=== PATIENT | female | born 1985 | race African-American/Black ===

== ENCOUNTER 2019-07-17 02:12 | Emergency (ER) | payer BC ==
[~2019-07-17] VITALS: Ht 167.6 cm; Wt 86.2 kg
[2019-07-17] MEDS ORDERED: ASPIRIN 81 MG TAB.CHEW PO ONE (02:15)
[2019-07-17] MEDS ORDERED: IV NORMAL SALINE 1,000ML 1,000 ML IV SCH (02:15)
--- NOTE | 2019-07-17 02:31 | PHYS DOC ---
Past History Past Medical History: Asthma, Other Additional Past Medical Histor: GRAVES, GASTROPORESIS, PRE-DIABETIC Past Surgical History: Tonsillectomy, Other Additional Past Surgical Histo: LAPROSCOPIC Alcohol Use: Occasionally Drug Use: None Adult General Chief Complaint Chief Complaint: SHORTNESS OF BREATH HPI HPI 33-year-old female presents with shortness of breath. The patient was feeling short of breath when she went to bed last night. Today she was doing well most the day until bedtime. She then began to feel a chest heaviness and like she could not get a deep breath. She took several puffs of albuterol. This did not seem to help. She decided come the emergency room. The patient is on medications for mild intermittent asthma, bipolar, anxiety, and alcohol abuse. No recent medication changes. She denies falls or trauma. No diaphoresis, fever, or chills. She is very worried. Review of Systems Review of Systems Constitutional: Denies fever or chills [] Eyes: Denies change in visual acuity, redness, or eye pain [] HENT: Denies nasal congestion or sore throat [] Respiratory: shortness of breath [] Cardiovascular: No additional information not addressed in HPI [] GI: Denies abdominal pain, nausea, vomiting, bloody stools or diarrhea [] : Denies dysuria or hematuria [] Musculoskeletal: Denies back pain or joint pain [] Integument: Denies rash or skin lesions [] Neurologic: Denies headache, focal weakness or sensory changes [] Endocrine: Denies polyuria or polydipsia [] All other systems were reviewed and found to be within normal limits, except as documented in this note. Current Medications Current Medications Current Medications Medications (Trade) Dose Ordered Sig/Mariah Start Time Stop Time Status Last Admin Dose Admin Aspirin (Children'S Aspirin) 324 mg 1X ONCE 07/17/19 02:15 07/17/19 02:16 UNV Sodium Chloride 1,000 ml @ 1,000 mls/hr Q1H 07/17/19 02:15 07/17/19 03:14 UNV Allergies Allergies Allergies Coded Allergies Type Severity Reaction Last Updated Verified cefaclor Allergy Unknown 07/17/19 Yes Physical Exam Physical Exam Constitutional: Well developed, well nourished, no acute distress, non-toxic appearance. [] HENT: Normocephalic, atraumatic, bilateral external ears normal, oropharynx moist, no oral exudates, nose normal. [] Eyes: PERRLA, EOMI, conjunctiva normal, no discharge. [] Neck: Normal range of motion, no tenderness, supple, no stridor. [] Cardiovascular: Heart rate 133, regular rhythm, no murmur [] Lungs & Thorax: Bilateral breath sounds clear to auscultation [] Abdomen: Bowel sounds normal, soft, no tenderness, no masses, no pulsatile masses. [] Skin: Warm, dry, no erythema, no rash. [] Back: No tenderness, no CVA tenderness. [] Extremities: No tenderness, no cyanosis, no clubbing, ROM intact, no edema. [] Neurologic: Alert and oriented X 3, normal motor function, normal sensory function, no focal deficits noted. [] Psychologic: Affect nervous, judgement normal, mood anxious. [] Current Patient Data Vital Signs Vital Signs Date Time Temp Pulse Resp B/P (MAP) Pulse Ox O2 Delivery O2 Flow Rate FiO2 07/17/19 02:24 97.6 131 28 99 Room Air EKG EKG Sinus tachycardia, rate 133, normal axis, no ST elevations or depressions.[] Radiology/Procedures Radiology/Procedures [] Impressions: Exam: Chest 2 views INDICATION: Chest pain TECHNIQUE: Frontal and lateral views the chest Comparisons: None FINDINGS: The cardiomediastinal silhouette and pulmonary vessels are within normal limits. The lung and pleural spaces are clear. IMPRESSION: No acute cardiopulmonary process. Electronically signed by: Andre Live MD (07/17/2019 3:03 AM) [facility] DICTATED AND SIGNED BY: ANDRE LIVE MD DATE: 07/17/19 0303 CC: ELSA CHEW DO; LINDA AMADOR MD ~ Exam: CT of chest with contrast INDICATION: Tachycardia TECHNIQUE: Sequential axial images through the chest obtained following the administration of 100 mL of Omni 350 IV contrast. Sagittal and coronal reformatted images were reconstructed from the axial data and reviewed. Comparisons: Chest x-ray same day FINDINGS: Visualized portions of the thyroid are unremarkable. No enlarged mediastinal lymph nodes are identified. Non enlarged right hilar lymph node is noted. Heart size is normal. No pericardial effusion. Thoracic aorta has normal course and caliber. Pulmonary artery is not enlarged. No pulmonary embolus identified within the main, lobar or segmental pulmonary arteries are identified. Airways are patent. No consolidation or pneumothorax. Patchy areas of groundglass opacity noted within the right middle and lower lobe, favored represent atelectasis. No suspicious lung nodules are identified. No pleural effusion or thickening. Visualized upper abdomen is unremarkable. No suspicious osseous lesions or acute fractures. IMPRESSION: No pulmonary embolus identified within the main, lobar or segmental pulmonary arteries. Exposure: One or more of the following in the visualized dose reduction techniques were utilized for this examination: 1. Automated exposure control 2. Adjustment of the MA and/or KV according to patient size 3. Use of iterative of reconstructive technique Electronically signed by: Andre Live MD (07/17/2019 5:07 AM) [facility] DICTATED AND SIGNED BY: ANDRE LIVE MD DATE: 07/17/19 0507 CC: ELSA HCEW DO; LINDA AMADOR MD ~ Course & Med Decision Making Course & Med Decision Making Pertinent Labs and Imaging studies reviewed. (See chart for details) The patient's labs are unremarkable. Her chest x-rays negative for acute findings. The patient's urine drug screen is only positive for alcohol. Given her persistent tachycardia and was in the 120s, I ordered a CTA of the chest. The CT is negative for pulmonary embolus. Her heart rate has improved to the low 110s. I believe her albuterol wearing off. She is enough albuterol today to lower her potassium. I gave her 40 mEq of supplemental. This could still be anxiety driven. The patient was given 2 mg of Ativan IV. He denies any significant abnormalities to warrant admission. The patient is stable for discharge at this time. [] Dragon Disclaimer Dragon Disclaimer This electronic medical record was generated, in whole or in part, using a voice recognition dictation system. Departure Departure: Impression: Primary Impression: Anxiety reaction Additional Impression: SOB (shortness of breath) Disposition: 01 HOME, SELF-CARE Condition: STABLE Referrals: LINDA AMADOR MD (PCP) Patient Instructions: Anxiety and Panic Attacks, [id number], Chest Pain (Nonspecific), [id number] Problem Qualifiers ELSA CHEW DO Jul 17, 2019 02:30
[2019-07-17 02:53] LABS: BASO # 0.1 x10^3/uL (0.0-0.2); BASO % 1 % (0-3); EOS % 0 % (0-3); HEMATOCRIT 46.5 % (36.0-47.0); HEMOGLOBIN 15.3 g/dL (12.0-15.5); LYMPH # 3.4 x10^3/uL (1.0-4.8); LYMPH % 29 % (24-48); MEAN CORPUSCULAR HEMOGLOBIN 32 pg (25-35); MEAN CORPUSCULAR HGB CONC 33 g/dL (31-37); MEAN CORPUSCULAR VOLUME 98 fL (79-100); MONO # 0.8 x10^3/uL (0.0-1.1); MONO % 7 % (0-9); NEUT # 7.4 x10^3uL (1.8-7.7); NEUT % 64 % (31-73); PLATELET COUNT 297 x10^3/uL (140-400); RED BLOOD COUNT 4.76 x10^6/uL (3.50-5.40); WHITE BLOOD COUNT 11.7 x10^3/uL (4.0-11.0)
--- NOTE | 2019-07-17 03:06 | RAD ---
Exam: Chest 2 views INDICATION: Chest pain TECHNIQUE: Frontal and lateral views the chest Comparisons: None FINDINGS: The cardiomediastinal silhouette and pulmonary vessels are within normal limits. The lung and pleural spaces are clear. IMPRESSION: No acute cardiopulmonary process. Electronically signed by: Andre Morelos MD (07/17/2019 3:03 AM) [facility]
[2019-07-17 03:39] LABS: ALBUMIN 3.7 g/dL (3.4-5.0); ALBUMIN/GLOBULIN RATIO 0.9 (1.0-1.7); CALCIUM 8.9 mg/dL (8.5-10.1); CREATININE 0.7 mg/dL (0.6-1.0); GFR 117.3; TOTAL BILIRUBIN 0.3 mg/dL (0.2-1.0)
[2019-07-17 03:42] LABS: POTASSIUM 2.8 mmol/L (3.5-5.1)
[2019-07-17] MEDS ORDERED: POTASSIUM CHLORIDE 20 MEQ TABLET.ER. PO ONE (03:45)
[2019-07-17] MEDS ORDERED: IOHEXOL 350 MG/ML 100 ML VIAL. IV ONE (04:00)
[2019-07-17 04:14] LABS: BARBITURATES NEG (NEG); BENZODIAZEPINES NEG (NEG); CANNABINOIDS NEG (NEG); COCAINE NEG (NEG); METHADONE NEG (NEG); OPIATES NEG (NEG); PHENCYCLIDINE NEG (NEG)
[2019-07-17 04:15] LABS: BACTERIA,URINE 0 /HPF (0-FEW); BILIRUBIN,URINE NEG (NEG); CLARITY,URINE CLEAR; COLOR,URINE YELLOW; GLUCOSE,URINE NEG (NEG); NITRITE,URINE NEG (NEG); RBC,URINE OCC /HPF (0-2); SQUAMOUS EPITHELIAL CELL,UR OCC /LPF; UROBILINOGEN,URINE 0.2 mg/dL (0.2 mg/dL); WBC,URINE OCC /HPF (0-4)
[2019-07-17] MEDS ORDERED: CONTRAST GIVEN MC PRN (04:15)
[2019-07-17 04:16] LABS: AMPHETAMINE/METHAMPHETAMINE NEG (NEG)
[2019-07-17 04:48] VITALS: BP 124/83
--- NOTE | 2019-07-17 05:10 | RAD ---
Exam: CT of chest with contrast INDICATION: Tachycardia TECHNIQUE: Sequential axial images through the chest obtained following the administration of 100 mL of Omni 350 IV contrast. Sagittal and coronal reformatted images were reconstructed from the axial data and reviewed. Comparisons: Chest x-ray same day FINDINGS: Visualized portions of the thyroid are unremarkable. No enlarged mediastinal lymph nodes are identified. Non enlarged right hilar lymph node is noted. Heart size is normal. No pericardial effusion. Thoracic aorta has normal course and caliber. Pulmonary artery is not enlarged. No pulmonary embolus identified within the main, lobar or segmental pulmonary arteries are identified. Airways are patent. No consolidation or pneumothorax. Patchy areas of groundglass opacity noted within the right middle and lower lobe, favored represent atelectasis. No suspicious lung nodules are identified. No pleural effusion or thickening. Visualized upper abdomen is unremarkable. No suspicious osseous lesions or acute fractures. IMPRESSION: No pulmonary embolus identified within the main, lobar or segmental pulmonary arteries. Exposure: One or more of the following in the visualized dose reduction techniques were utilized for this examination: 1. Automated exposure control 2. Adjustment of the MA and/or KV according to patient size 3. Use of iterative of reconstructive technique Electronically signed by: Andre Morelos MD (07/17/2019 5:07 AM) [facility]
== END 2019-07-17 05:25 | disposition home or self-care (01) ==
LOC: ER 02:12
DX: F41.9 Anxiety disorder, unspecified (principal); J45.909 Unspecified asthma, uncomplicated; Z88.1 Allergy status to other antibiotic agents
CPT/HCPCS: 36415; 71046; 71275; 80053; 80307; 81001; 83690; 84484; 85025; 96374; 99285; J2060; Q9967; J7030

== ENCOUNTER → 2021-08-10 | Outpatient (CLI) | payer BC ==
[~2021-08-10] MED LIST: ALBU2.5V8 IH; DULO60CA7 PO; LAMO200T25 PO; RISP2TAB78 PO; SIMV20TA18 PO; TRAZ-120 PO; norethindrone
== END ==
LOC: LAB 08:35
PROVIDERS: ATTEND Internal Medicine Gastroenterology
DX: Z01.812 Encounter for preprocedural laboratory examination (principal); R13.10 Dysphagia, unspecified; K21.9 Gastro-esophageal reflux disease without esophagitis; R11.10 Vomiting, unspecified; Z20.822 Contact with and (suspected) exposure to COVID-19
CPT/HCPCS: U0003

== ENCOUNTER → 2021-08-13 | Day surgery (SDC) | payer BC ==
[~2021-08-13] MED LIST changes: +CITRIC ACID/SODIUM CITRATE 30 ML SOLUTION. ONE; +IPRATRPIUM/ALBUTEROL 0.5/2.5MG 3 ML NEBU. NEB PRN; +IV RINGERS SOLUTION,LACTATED 1,000 ML IV SCH; +LIDOCAINE 2% PF 5 ML VIAL. ONE; +MIDAZOLAM HCL PF 2 MG/2 ML VIAL. IV ONE; +ONDANSETRON PF 4 MG/2 ML VIAL. IV PRN; +PROAIR RESPICL90 MCG IH; +PROPOFOL 10,000 MCG/ML (20ML) VIAL IV ONE
--- NOTE | 2021-08-13 11:45 | NUR ---
Patient sinus tachycardia on tele monitor, no complains of shortness of breath, chest pain, dizziness. Anesthesia aware, requested EKG.
[2021-08-13 11:58] LABS: U PREG PATIENT NEGATIVE (NEG)
[2021-08-13 13:32] VITALS: BP 137/91
--- NOTE | 2021-08-13 14:34 | EKG ---
[address] [address] Test Date: 2021-08-13 Test Time: 11:54:48 Pat Name: ESTEPHANIA TIERNEY Department: Room: Gender: F [employer] Supervisor: ESTELLA : 1985 Requested By: PADMINI SOARES Order Number: [id number] Reading MD: Balwinder Chapa MD Measurements Intervals [place] Rate: 111 P: 31 [place]: 140 QRS: 47 QRSD: 64 T: 19 QT: 316 QTc: 433 Interpretive Statements SINUS TACHYCARDIA Electronically Signed On 08-16-2021 9:30:43 [employer] by Balwinder Chapa MD
--- NOTE | 2021-08-17 17:09 | PATHOLOGY ---
[facility] Accession Number: [id number] . 01 Material submitted: . stomach - ANTRUM BIOPSY . 01 Clinical history: . DYSPHAGIA, EGD . 02 Diagnosis: Gastric biopsies, antrum: - Congestion and focal slight chronic inflammation. (M:emily; 08/17/2021) [facility] 08/17/2021 1358 Local . 02 Comment: Sections of the gastric biopsy reveal gastric antral and antral/body transition mucosa showing congestion and focal slight chronic inflammation. A properly controlled immunoperoxidase stain for Helicobacter is negative for Helicobacter organisms. (JPM:car runner; 08/17/2021) . 02 Electronically signed: . Donnie Singh MD, Pathologist NPI- [id number] . 01 Gross description: . The specimen is received in formalin, labeled "Shabnam, Shannon, antrum". Received are 2 segments of pale dale tissue measuring 0.4 to 0.5 cm in maximum dimensions. The specimen is submitted entirely in cassette A1.([facility]; 08/16/2021) [facility] 08/16/2021 1515 Local . 02 Pathologist provided ICD-10: K29.50 . 02 CPT . 765715, [id number] Specimen Comment: A courtesy copy of this report has been sent to [phone], [phone] Specimen Comment: [id number] Specimen Comment: Report sent to / DR AMADOR Specimen Comment: A duplicate report has been generated due to demographic updates. Performed at: 01 [facility] [address], [place], [place] [id number] MD Jerrod Maldonado MD Phone: [phone] Performed at: 02 [facility] [address] [place], [place] [id number] MD Donnie Singh MD Phone: [phone]
== END | disposition home or self-care (01) ==
LOC: SURG 11:31
PROVIDERS: ATTEND Internal Medicine Gastroenterology
DX: R13.10 Dysphagia, unspecified (principal); R12 Heartburn; K29.50 Unspecified chronic gastritis without bleeding; K44.9 Diaphragmatic hernia without obstruction or gangrene; K21.00 Gastro-esophageal reflux disease with esophagitis, without bleeding; K31.89 Other diseases of stomach and duodenum; Z79.899 Other long term (current) drug therapy; Z72.89 Other problems related to lifestyle; Z98.890 Other specified postprocedural states; Z91.040 Latex allergy status; Z88.8 Allergy status to other drugs, medicaments and biological substances
CPT/HCPCS: 43239; 43450; 81025; 88305; 88342; 93005; J2001; J2704; J7120